=== PATIENT | male | born 1935 | race Caucasian/White ===

== ENCOUNTER 2017-02-10 11:08 | Day surgery (SDC) | payer MEDICARE, OTHER ==
[2017-02-02 15:23] LABS: HEMATOCRIT 34.7 % (40.0-51.0); HEMOGLOBIN 11.9 g/dL (13.6-17.8)
[2017-02-02 15:37] LABS: BUN (BLOOD UREA NITROGEN) 14 MG/DL (6-23); CALCIUM, SERUM 9.1 MG/DL (8.5-10.4); CHLORIDE, SERUM 106 MMOL/L (96-112); CO2 (CARBON DIOXIDE) 27 MMOL/L (24-34); CREATININE 1.21 MG/DL (0.70-1.30); GFR AFRICAN AMERICAN 65 ML/MIN (>=60); GFR NON AFRICAN AMERICAN 56 ML/MIN (>=60); GLUCOSE, SERUM 104 MG/DL (60-99); POTASSIUM, SERUM 4.3 MMOL/L (3.5-5.3); SODIUM, SERUM 139 MMOL/L (135-148)
--- NOTE | ~2017-02-10 | OP ---
Record Of Operation [facility] [address] [place]. [address] NAME: JODY HUMPHREYS : 35 STATUS : REG [facility] PAT#: [id number] AGE: 81 ADM/REG DATE : 02/10/17 MR#: [id number] REPORT SERV DATE: 02/10/17 DICTATED BY: MIKEY KRUGER III DATE: 02/10/17 REPORT STATUS : Draft TRANSCRIBED BY: MODL DATE: 02/10/17 DATE OF PROCEDURE: 02/10/2017 PREOPERATIVE DIAGNOSIS: Left scrotal mass consistent with lipoma. POSTOPERATIVE DIAGNOSIS: Left scrotal mass consistent with lipoma. PROCEDURE: Left inguinal orchiectomy. SURGEON: Mikey Kruger M.D. ANESTHESIA: General. SPECIMEN: Left testicle with a scrotal mass. BLOOD LOSS: 25 mL. INDICATION: Mr. Humphreys is an 81-year-old, white male with a very large left scrotal mass. CT scan shows this is consistent with a benign lipoma. It measures greater than 20 cm across. Options have been discussed with the patient. He wishes to proceed with left inguinal orchiectomy. DESCRIPTION OF PROCEDURE: After consent was obtained, the patient was identified and was taken to the OR and put to sleep. He was positioned in the supine position and prepped and draped in usual fashion. An incision was made from the upper limits of the left hemiscrotum to the area overlying the external inguinal ring. Dissection was taken down with cautery. The cord was covered with fatty tissue. I was, however, able to isolate what seemed to be the spermatic cord near the external ring. This was doubly clamped, cut, and tied. I was then able to identify the vas deferens, which was doubly clipped and cut. In order to deliver the mass through the wound, I had to extend the incision down to the scrotum. Ultimately, I was able to deliver the mass through the incision. The rest of the procedure was basically freeing up the mass from the attachments to the surrounding tissue, it is rather extensively adherent to the scrotal skin. Care was taken not to buttonhole the skin. Ultimately, the mass was excised and it was passed off as specimen. The wound was irrigated and a cord block with 0.5% Marcaine was performed. Bleeding points were either cauterized or ligated. I did place Surgicel in the bed of the incision. The incision was then closed with 3-0 chromic on the subdartos and into the scrotum and the fascia higher up in the inguinal area. The skin was then reapproximated using jennifer. A pressure dressing was applied. The patient was awakened and taken to recovery in stable condition. PH/MODL Mikey Kruger III, M.D. Record Of Operation [address] [address] NAME: JODY HUMPHREYS : 35 STATUS : REG [facility] PAT#: [id number] AGE: 81 ADM/REG DATE : 02/10/17 MR#: [id number] REPORT SERV DATE: 02/10/17 DICTATED BY: MIKEY KRUGER III DATE: 02/10/17 REPORT STATUS : Draft TRANSCRIBED BY: DALTON DATE: 02/10/17 / [id number] CC: Malachi George III, M.D.
[~2017-02-10 11:08] MED LIST: ADVAIR100 INH; CARDCD180 PO; CARDCD240 PO; MULTIPLE VIT PO; NEXIUM40 PO; NORV10 PO; PRIN10 PO; RESTASIS OPH; TRAVATAN Z0.004 % OPH; VENTOLIN HFA INH
== END 2017-02-10 19:26 | disposition home or self-care (01) ==
LOC: SDC 11:08
PROVIDERS: Urology
PROC: 0VBB0ZZ Excision of Left Testis, Open Approach (ICD-10-PCS; principal; 2017-02-10 12:45)
DX: C62.92 Malignant neoplasm of left testis, unspecified whether descended or undescended (principal); I10 Essential (primary) hypertension; M19.90 Unspecified osteoarthritis, unspecified site; K21.9 Gastro-esophageal reflux disease without esophagitis; N40.0 Benign prostatic hyperplasia without lower urinary tract symptoms; J45.909 Unspecified asthma, uncomplicated; Z98.41 Cataract extraction status, right eye; Z98.42 Cataract extraction status, left eye; Z98.890 Other specified postprocedural states
CPT/HCPCS: 80048; 85014; 85018; 88309; 88341; 88342; 88360; 93005; A9270-GY; J0690; J2250; J2270; J2405; J2710; J3010